=== PATIENT | female | born 1950 | race Caucasian/White ===

== ENCOUNTER 2023-11-05 06:37 | Observation (INO) ==
[~2023-11-05 06:37] MED LIST: NS 0.45% 1000 ml BAG 1,000 ML IV SCH; Naloxone 0.4 mg VIAL 0.4 mg/ml 1 ml VIAL IV PRN; Ondansetron 4 mg VIAL 2 MG/ML 2 ml VIAL IV PRN; fentaNYL 100 mcg/2 ml 50 MCG/ML VIAL IV PRN
[2023-11-05 07:29] LABS: Rapid COVID-19 Molecular Undetected (Undetected)
[2023-11-05] MEDS ORDERED: fentaNYL 100 mcg/2 ml 50 MCG/ML VIAL ONE ×2 (08:11→11:59)
[2023-11-05] MEDS ORDERED: Lidocaine 2% PF 5 ML VIAL ONE (08:11)
[2023-11-05] MEDS ORDERED: Midazolam 2 mg/2 ml VIAL 1 mg/ml 2 ml VIAL (2 mg) ONE (08:11)
[2023-11-05] MEDS ORDERED: Ondansetron 4 mg VIAL 2 MG/ML 2 ml VIAL ONE (08:13)
[2023-11-05] MEDS ORDERED: ceFAZolin 2 GM PREMIX 2 GM/50 ML BAG ONE (08:17)
[2023-11-05] MEDS ORDERED: Tranexamic Acid 1 GM/100ML BAG 2,000 MG/200 ML BAG IV ONE (08:17)
[2023-11-05] MEDS: Lactated Ringers 1000 ml BAG 1,000 ML IV SCH ×2 (08:18→14:21)
[2023-11-05] MEDS ORDERED: Bupivacaine 0.5% SDV PF 30ML VIAL ONE (08:44)
[2023-11-05] MEDS ORDERED: ROPIVACAINE 5 MG/ML 30 ML BTL (0.5%) ONE (08:45)
[2023-11-05] MEDS ORDERED: Glycopyrrolate IV 0.2 MG/ML 1 ML VIAL ONE (10:40)
[2023-11-05] MEDS ORDERED: Dexamethasone IV 4 MG/ML VIAL 1 ml VIAL ONE (10:40)
[2023-11-05] MEDS ORDERED: Lactulose 30 ml UDC PO PRN (12:39)
[2023-11-05] MEDS ORDERED: Magnesium Hydroxide LIQ 30 ML UDC PO PRN (12:39)
[2023-11-05] MEDS ORDERED: Morphine 2 MG/ML SYRINGE IV PRN (12:39)
[2023-11-05] MEDS ORDERED: Ondansetron ODT 4 mg TAB 4 MG TAB PO PRN (12:39)
[2023-11-05] MEDS ORDERED: Ondansetron 4 mg VIAL 2 MG/ML 2 ml VIAL IV PRN (12:39)
[2023-11-05] MEDS ORDERED: Calcium Carb (TUMS) 500 mg CHEW TAB PO PRN (12:39)
[2023-11-05] MEDS: Acetaminophen IV 1 GM/100ML 1,000 MG/100 ML BAG IV ONE (16:05)
[2023-11-05] MEDS: ceFAZolin 2 GM in NS PREMIX 2 GM/100 ML BAG IVPB SCH (17:48)
[2023-11-05] MEDS: Potassium Chlor 10 meq TAB PO SCH (18:44)
[2023-11-05] MEDS: Magnesium Hydroxide LIQ 30 ML UDC PO SCH (21:33)
[2023-11-05] MEDS: Buffered Lidocaine 1% SYRIN 1 ml INTRADERM ONE (22:54)
[2023-11-06 05:56] LABS: Hematocrit 36.4 % (35-45); Hemoglobin 12.5 g/dL (11.5-14.3); Mean Platelet Volume 8.4 fL (7.5-11.2); Platelet Count 175 10^3/uL (150-450)
[2023-11-06 06:15] LABS: Calcium 9.3 mg/dL (8.6-10.3); Creatinine, Serum 0.84 mg/dL (0.51-0.95); Potassium 4.1 mmol/L (3.5-5.0); eGFR CKD-EPI 73.8 (>60)
[2023-11-06] MEDS: DULoxetine DR 20 mg CAP PO SCH (07:33)
[2023-11-06] MEDS: DULoxetine DR 30 mg CAP PO SCH (07:33)
[2023-11-06] MEDS: Vitamin THERAPEUTIC TAB PO SCH (07:34)
[2023-11-06] MEDS: NF: Exemestane 25 mg TAB (NF) PO SCH (08:07)
[2023-11-06 10:16] VITALS: BP 95/56
== END 2023-11-06 12:55 | disposition home or self-care (01) ==
LOC: OR 06:37 → SSU 06:37
PROVIDERS: ADMIT Orthopaedic Surgery Adult Reconstructive Orthopaedic Surgery; ATTEND Orthopaedic Surgery Adult Reconstructive Orthopaedic Surgery